=== PATIENT | female | born 1950 | race American Indian/Alaskan Native ===

== ENCOUNTER 2020-11-18 13:03 | Emergency (ER) | payer MEDICARE, OTHER ==
--- NOTE | 2020-11-18 16:10 | Emergency Department Report ---
Blank Doc - Documentation Documentation: 70-year-old female that presents with right flank pain. This initial assessment/diagnostic orders/clinical plan/treatment(s) is/are subject to change based on patient's health status, clinical progression and re- assessment by fellow clinical providers in the ED. Further treatment and workup at subsequent clinical providers discretion. Patient/guardians urged not to elope from the ED as their condition may be serious if not clinically assessed and managed. Initial orders include: 1- Patient sent to [facility] for further evaluation and treatment 2- labs 3 UA
[2020-11-18 16:45] LABS: Basophils % (Auto) 0.7 % (0.0-1.8); Eosinophils # (Auto) 0.2 K/mm3 (0.0-0.4); Eosinophils % (Auto) 3.2 % (0.0-4.3); Hematocrit 39.1 % (30.3-42.9); Hemoglobin 12.9 gm/dl (10.1-14.3); Lymphocytes # (Auto) 2.9 K/mm3 (1.2-5.4); Lymphocytes % (Auto) 43.4 % (13.4-35.0); Mean Corpuscular HGB Conc 33 % (30-34); Mean Corpuscular Volume 78 fl (79-97); Monocytes # (Auto) 0.5 K/mm3 (0.0-0.8); Platelet Count 344 K/mm3 (140-440); Red Cell Distribution Width 16.1 % (13.2-15.2)
[2020-11-18 17:08] LABS: Alanine Aminotransferase 10 units/L (7-56); Albumin 3.7 g/dL (3.9-5); BUN/Creatinine Ratio 16; Blood Urea Nitrogen 16 mg/dL (7-17); Calcium 9.2 mg/dL (8.4-10.2); Hemolysis Index 7
[2020-11-18 17:08] LABS: Bacteria,Urine 1+ /HPF (Negative); Bilirubin,Urine NEG (Negative); Blood,Urine SM (Negative); Color,Urine Straw (Yellow); Mucus,Urine FEW /HPF; Protein,Urine <15 mg/dL mg/dL (Negative); Urobilinogen,Urine < 2.0 mg/dL (<2.0)
[2020-11-18 17:10] LABS: RBC,Urine < 1.0 /HPF (0.0-6.0)
[2020-11-18] MEDS ORDERED: KETOROLAC 30 MG/1 ML INJ IM ONE (18:02)
--- NOTE | 2020-11-18 18:07 | Emergency Department Report ---
ED Back Pain/Injury HPI - General Chief Complaint: Back Pain/Injury Stated Complaint: RT SIDE PAIN/BACK PAIN Time Seen by Provider: 11/18/20 16:09 Source: patient Limitations: No Limitations - History of Present Illness Initial Comments: Patient 70-year-old -French female with a history of osteoarthritis and lumbar spondylosis who presents for right flank pain x2 days. Patient states pain radiates from right flank to right supra. She denies dysuria, frequency, urgency, hematuria. There is no nausea vomiting, no fever no chills. Patient denies fall injury or trauma. Pain is described at 4/10 aching with intermittent spasms. Pain is relieved by nothing tried. Pain is exacerbated by movement, bending, and twisting. Patient is ambulatory to baseline per patient at this time. There is no numbness, tingling, weakness. There has been no loss or decrease in bowel or bladder function. MD Complaint: back pain - Related Data Previous Rx's Medication Instructions Recorded Last Taken Type Acetaminophen [Arthritis Pain 650 mg PO QID PRN #30 tablet.er 11/18/20 Unknown Rx Reliever] Capsaicin 0.075% [Zostrix Hp 1 applicatio TP TID PRN #1 tube 11/18/20 Unknown Rx 0.075%] predniSONE [Deltasone] 40 mg PO QDAY 5 Days #10 tab 11/18/20 Unknown Rx Allergies Allergy/AdvReac Type Severity Reaction Status Date / Time torsemide AdvReac Unknown Unverified 12/17/14 12:38 ED Review of Systems ROS: Stated complaint: RT SIDE PAIN/BACK PAIN Other details as noted in HPI Constitutional: denies: chills, fever Eyes: denies: eye pain, eye discharge, vision change ENT: denies: ear pain, throat pain Respiratory: denies: cough, shortness of breath, wheezing Cardiovascular: as per HPI Endocrine: no symptoms reported Gastrointestinal: denies: abdominal pain, nausea, diarrhea Genitourinary: denies: urgency, dysuria, discharge Musculoskeletal: back pain, arthralgia Skin: denies: rash, lesions Neurological: denies: headache, weakness, paresthesias Psychiatric: denies: anxiety, depression Hematological/Lymphatic: denies: easy bleeding, easy bruising ED Past Medical Hx - Past Medical History Previous Medical History?: Yes Additional medical history: Osteoarthritis - Social History Smoking Status: Never Smoker Substance Use Type: None - Medications Home Medications: Home Medications Medication Instructions Recorded Confirmed Last Taken Type Acetaminophen [Arthritis Pain 650 mg PO QID PRN #30 tablet.er 11/18/20 Unknown Rx Reliever] Capsaicin 0.075% [Zostrix Hp 1 applicatio TP TID PRN #1 tube 11/18/20 Unknown Rx 0.075%] predniSONE [Deltasone] 40 mg PO QDAY 5 Days #10 tab 11/18/20 Unknown Rx ED Physical Exam - General Limitations: No Limitations General appearance: alert, in no apparent distress - Head Head exam: Present: atraumatic, normocephalic - Eye Eye exam: Present: normal appearance, EOMI Pupils: Present: normal accommodation - ENT ENT exam: Present: mucous membranes moist - Neck Neck exam: Present: normal inspection, tenderness, full ROM. Absent: lymphadeno joby - Respiratory Respiratory exam: Present: normal lung sounds bilaterally, chest wall tenderness. Absent: respiratory distress, wheezes, stridor - Cardiovascular Cardiovascular Exam: Present: regular rate, normal rhythm, normal heart sounds. Absent: systolic murmur, diastolic murmur, rubs, gallop - GI/Abdominal GI/Abdominal exam: Present: soft, normal bowel sounds. Absent: distended, tenderness, guarding, rebound, rigid, bruit, hernia - Rectal Rectal exam: Present: deferred - Extremities Exam Extremities exam: Present: normal inspection, full ROM, normal capillary refill. Absent: tenderness - Back Exam Back exam: Present: tenderness, CVA tenderness (R), muscle spasm, paraspinal tenderness (right lateral paraspinus muscle tenderness, no posterior vertebral point tenderness, ). Absent: CVA tenderness (L), vertebral tenderness, rash noted - Expanded Back Exam Expanded Back exam: Absent: saddle anesthesia Back exam: Negative Straight Leg Raising: Left, Right - Neurological Exam Neurological exam: Present: alert, oriented X3, CN II-XII intact, normal gait, reflexes normal. Absent: motor sensory deficit - Expanded Neurological Exam Expanded Patient oriented to: Present: person, place, time Speech: Present: fluid speech Motor strength exam: RUE: 5, LUE: 5, RLE: 5, LLE: 5 DTR: ankle (R): 2+, ankle (L): 2+ Best Eye Response (Andrade): (4) open spontaneously Best Motor Response ([place]): (6) obeys commands Best Verbal Response (Andrade): (5) oriented Andrade Total: 15 - Psychiatric Psychiatric exam: Present: normal affect, normal mood - Skin Skin exam: Present: warm, dry, intact, normal color. Absent: rash ED Course Vital Signs 11/18/20 11/18/20 14:29 18:26 Temperature 97.6 F Pulse Rate 74 Respiratory 20 18 Rate Blood Pressure 187/71 O2 Sat by Pulse 100 Oximetry ED Medical Decision Making - Lab Data Result diagrams: 11/18/20 16:23 11/18/20 16:23 Labs 11/18/20 11/18/20 11/18/20 16:23 16:23 16:42 WBC 6.7 RBC 5.00 Hgb 12.9 Hct 39.1 MCV 78 L MCH 26 L MCHC 33 RDW 16.1 H Plt Count 344 Lymph % (Auto) 43.4 H [place] % (Auto) 7.0 Eos % (Auto) 3.2 Baso % (Auto) 0.7 Lymph # (Auto) 2.9 [place] # (Auto) 0.5 Eos # (Auto) 0.2 Baso # (Auto) 0.0 Seg Neutrophils % 45.7 Seg Neutrophils # 3.1 Sodium 137 Potassium 3.6 Chloride 98.8 Carbon Dioxide 30 Anion Gap 12 BUN 16 Creatinine 1.0 Estimated GFR > 60 BUN/Creatinine Ratio 16 Glucose 120 H Calcium 9.2 Total Bilirubin 0.40 AST 16 ALT 10 Alkaline Phosphatase 142 H Total Protein 7.6 Albumin 3.7 L Albumin/Globulin Ratio 0.9 Urine Color Straw Urine Turbidity Clear Urine pH 6.0 Ur Specific [place] 1.004 Urine Protein <15 mg/dl Urine Glucose (UA) Neg Urine Ketones Neg Urine Blood Sm Urine Nitrite Neg Urine Bilirubin Neg Urine Urobilinogen < 2.0 Ur Leukocyte Esterase Neg Urine WBC (Auto) 1.0 Urine RBC (Auto) < 1.0 U Epithel Cells (Auto) < 1.0 Urine Bacteria (Auto) 1+ Urine Mucus Few - Medical Decision Making ua noted normal, pt has hx of osteoarthraliga, with lumbar spondylosis, there has been no new fall injury or trauma, pain is improved , pt is ambulatory with steady gait, pt will be dc'd with rx will follow up with pcp in 2-3 days, pt verbalized agreement and understanding of discharge plan. Critical care attestation.: If time is entered above; I have spent that time in minutes in the direct care of this critically ill patient, excluding procedure time. ED Disposition Clinical Impression: Lumbar spondylosis Lumbosacral strain Qualifiers: Encounter type: initial encounter Qualified Code(s): S39.012A - Strain of muscle, fascia and tendon of lower back, initial encounter Disposition: TO HOME OR SELFCARE Is pt being admited?: No Does the pt Need Aspirin: No Condition: Stable Instructions: Lumbosacral Strain, Spondylolysis Rehab-[facility] Prescriptions: Acetaminophen [Arthritis Pain Reliever] 650 mg PO QID PRN #30 tablet.er PRN Reason: pain predniSONE [Deltasone] 40 mg PO QDAY 5 Days #10 tab Capsaicin 0.075% [Zostrix Hp 0.075%] 1 applicatio TP TID PRN #1 tube PRN Reason: pain Referrals: EDMAR SHARMA,KATHY [Other] - 3-5 Days Time of Disposition: 18:51
[2020-11-18 19:20] VITALS: BP 183/72
== END 2020-11-18 19:18 | disposition home or self-care (01) ==
LOC: ED 13:03
DX: S39.012A Strain of muscle, fascia and tendon of lower back, initial encounter (principal); M47.896 Other spondylosis, lumbar region; Z79.899 Other long term (current) drug therapy; X58.XXXA Exposure to other specified factors, initial encounter; Y93.89 Activity, other specified; Y92.89 Other specified places as the place of occurrence of the external cause; Y99.8 Other external cause status
CPT/HCPCS: 36415; 80053; 81001; 85025; 96372; 99283; J1885